=== PATIENT | female | born 1945 | race Caucasian/White ===

== ENCOUNTER 2018-07-30 16:42 | Emergency (ER) | payer MEDICARE, OTHER ==
[~2018-07-30] VITALS: Ht 160 cm; Wt 86.2 kg
[~2018-07-30 16:42] MED LIST: ALPR0.255; ASPI-605 PO; ATORVASTATIN TAB 40MG; BUTA-247; CALC-343 PO; CENTRUM CHEWAB1 EACH PO; ESTR1PAT7 TP; ESTR1PAT87; LEVO500T75 PO; LISI10TA5; MELA1TAB29 PO; METO10TA3; PROG100C15 PO; PROGESTERONE 100 MG
--- NOTE | 2018-07-30 16:48 | NUR ---
PT BIBRA FROM HOME TO ED BED 03 C/O L RIB AREA/FLANK PAIN S/P GLF AT HOME. PT PRESENTS W/ BILAT KNEE, L FOOT ABRASIONS. DENIES KO. GOWNED AND PLACED ON MONITOR. AWAITING MD JUAREZ.
[2018-07-30] MEDS ORDERED: ACETAMINOPHEN ES 500 MG TABLET PO ONE (17:00)
[2018-07-30] MEDS ORDERED: ONDANSETRON HCL/PF 4 MG/2 ML VIAL IVP ONE (17:00)
[2018-07-30] MEDS ORDERED: IV NS 0.9% 500 ML BAG IV ONE (17:00)
[2018-07-30] MEDS ORDERED: TDAP [DIPH/PERTUSSIS/TET] 0.5 ML VIAL IM ONE ×2 (17:00→17:09)
--- NOTE | 2018-07-30 17:00 | NUR ---
DR RENTERIA AT BEDSIDE FOR EVAL.
[2018-07-30] MEDS ORDERED: ONDANSETRON HCL/PF 4 MG/2 ML VIAL ONE (17:08)
[2018-07-30] MEDS ORDERED: ACETAMINOPHEN ES 500 MG TABLET ONE (17:09)
[2018-07-30] MEDS ORDERED: ESTR1PAT25 TD (17:12)
[2018-07-30] MEDS ORDERED: MULT-594 PO (17:12)
[2018-07-30] MEDS ORDERED: CHOL200059 PO (17:12)
[2018-07-30] MEDS ORDERED: LISI10TA5 PO (17:12)
[2018-07-30] MEDS ORDERED: CALC-864 PO (17:12)
[2018-07-30] MEDS ORDERED: ATOR40TA PO (17:12)
[2018-07-30] MEDS ORDERED: CALC-7 PO (17:26)
[2018-07-30] MEDS ORDERED: MULT-1160 PO (17:26)
[2018-07-30 17:37] LABS: BASOPHILS # (AUTO) 0.1 /CMM (0.0-0.2); BASOPHILS % (AUTO) 0.7 % (0.0-2.0); EOSINOPHILS % (AUTO) 0.5 % (0.0-6.0); HEMATOCRIT 40 % (33-45); HEMOGLOBIN 13.6 g/dL (11.5-14.8); LYMPHOCYTES # (AUTO) 1.3 /CMM (0.8-4.8); LYMPHOCYTES % (AUTO) 10.5 % (20.0-44.0); MEAN CORPUSCULAR HGB CONC 34 g/dl (31.0-36.0); MEAN CORPUSCULAR VOLUME 89 fL (82-100); MONOCYTES # (AUTO) 0.7 /CMM (0.1-1.30); MONOCYTES % (AUTO) 5.2 % (2.0-12.0); NEUTROPHILS # (AUTO) 10.5 /CMM (1.8-8.9); NEUTROPHILS % (AUTO) 83.1 % (43.0-81.0); PLATELET COUNT (AUTO) 232 /CMM (150-450); RED BLOOD CELL COUNT(AUTO) 4.51 MIL/uL (4.0-5.2); WHITE BLOOD COUNT (AUTO) 12.6 K/uL (4.3-11.0)
[2018-07-30 17:46] LABS: CALCIUM, SERUM 9.7 mg/dL (8.5-10.1); CARBON DIOXIDE 29 mmol/L (21-32); CHLORIDE 100 mmol/L (98-107); GLUCOSE 141 mg/dL (74-106); POTASSIUM 3.6 mmol/L (3.5-5.1); SODIUM SERUM 139 mmol/L (136-145); UREA NITROGEN, BLOOD 14 mg/dL (7-18)
--- NOTE | 2018-07-30 18:57 | NUR ---
DR RENTERIA BACK AT BEDSIDE TALKING TO PT'S FAMILY.
[2018-07-30] MEDS ORDERED: ONDANSETRON HCL/PF 4 MG/2 ML VIAL IV ONE (19:00)
[2018-07-30] MEDS ORDERED: METOCLOPRAMIDE HCL 10 MG/2 ML VIAL IV ONE (19:00)
[2018-07-30] MEDS ORDERED: ONDANSETRON 4 MG TAB.RAPDIS ONE (19:04)
--- NOTE | 2018-07-30 19:05 | NUR ---
REPORT GIVEN TO NITISH HENLEY FOR NOAM.
--- NOTE | 2018-07-30 19:09 | NUR ---
INFORMED THAT PT DOES NOT HAVE AN IV LINE ANYMORE. VERBAL ORDER RECEIVED OT GIVE ZOFRAN 4MG PO. INSTEAD OF IV.
--- NOTE | 2018-07-30 19:10 | NUR ---
REPORT RECEIVED FROM KALE BARRON FOR NOAM. PT IS IN BED. AWAKE AND ALERT.
[2018-07-30] MEDS ORDERED: METOCLOPRAMIDE HCL 10 MG TABLET ONE (19:33)
[2018-07-30] MEDS ORDERED: METOCLOPRAMIDE HCL 10 MG TABLET PO ONE (20:00)
[2018-07-30] MEDS ORDERED: ONDANSETRON HCL 4 MG/5 ML SOLUTION PO ONE (20:00)
[2018-07-30 21:21] VITALS: BP 133/81
== END 2018-07-30 21:23 | disposition home or self-care (01) ==
LOC: ER 16:47
DX: S00.81XA Abrasion of other part of head, initial encounter (principal); S80.212A Abrasion, left knee, initial encounter; S80.211A Abrasion, right knee, initial encounter; R11.10 Vomiting, unspecified; I10 Essential (primary) hypertension; E78.00 Pure hypercholesterolemia, unspecified; R51 Headache; Z98.890 Other specified postprocedural states; Z79.82 Long term (current) use of aspirin; W01.198A Fall on same level from slipping, tripping and stumbling with subsequent striking against other object, initial encounter; Y93.89 Activity, other specified; Y92.89 Other specified places as the place of occurrence of the external cause; Y99.8 Other external cause status
CPT/HCPCS: 36415; 70450; 71250; 80048; 84484; 85025; 85730; 90471; 90715; 93005; 96374; 99284; A6402; J2405; J7040; J8597; Q0162

== ENCOUNTER 2023-12-18 11:13 | Emergency (ER) | payer MEDICARE, OTHER ==
[~2023-12-18] VITALS: Ht 170.2 cm; Wt 68.0 kg
[~2023-12-18 11:13] MED LIST changes: -ALPR0.255; -ASPI-605 PO; +ATOR40TA PO; -ATORVASTATIN TAB 40MG; -BUTA-247; -CALC-343 PO; +CALC-7 PO; -CENTRUM CHEWAB1 EACH PO; +CHOL200059 PO; +ESTR1PAT25 TD; -ESTR1PAT7 TP; -ESTR1PAT87; -LEVO500T75 PO; +LISI10TA29 PO; -LISI10TA5; -MELA1TAB29 PO; -METO10TA3; +MULT-1160 PO; -PROGESTERONE 100 MG
[2023-12-18] MEDS ORDERED: MORPHINE SULFATE INJ 4 MG/ML DISP.SYRIN ONE (13:16)
[2023-12-18] MEDS ORDERED: ONDANSETRON HCL/PF 4 MG/2 ML VIAL ONE ×2 (13:16→16:09)
[2023-12-18] MEDS: IV NS 0.9% 1,000 ML BAG IV ONE (13:35)
[2023-12-18] MEDS: ONDANSETRON HCL/PF 4 MG/2 ML VIAL IVP ONE (13:36)
[2023-12-18 13:37] LABS: BASOPHILS % (AUTO) 0.2 % (0.0-2.0); EOSINOPHILS # (AUTO) 0.1 K/uL (0.0-0.7); EOSINOPHILS % (AUTO) 0.4 % (0.0-6.0); HEMATOCRIT 46 % (33-45); HEMOGLOBIN 14.9 g/dL (11.5-14.8); LYMPHOCYTES # (AUTO) 1.9 K/uL (0.8-4.8); LYMPHOCYTES % (AUTO) 7.2 % (20.0-44.0); MEAN CORPUSCULAR HEMOGLOBIN 30 PG (26.0-33.0); MEAN CORPUSCULAR HGB CONC 33 g/dl (31.0-36.0); MEAN CORPUSCULAR VOLUME 91 fL (82-100); MONOCYTES # (AUTO) 1.1 K/uL (0.1-1.30); MONOCYTES % (AUTO) 4.1 % (2.0-12.0); NEUTROPHILS # (AUTO) 22.9 K/uL (1.8-8.9); NEUTROPHILS % (AUTO) 88.1 % (43.0-81.0); PLATELET COUNT (AUTO) 291 K/uL (150-450); RED BLOOD CELL COUNT(AUTO) 5.06 MIL/uL (4.0-5.2)
[2023-12-18] MEDS: MORPHINE SULFATE INJ 2 MG/ML DISP.SYRIN IV ONE (13:41)
[2023-12-18 13:45] LABS: CALCIUM, SERUM 9.5 mg/dL (8.5-10.1); CARBON DIOXIDE 28 mmol/L (21-32); CHLORIDE 98 mmol/L (98-107); CREATININE 1.1 mg/dL (0.6-1.3); GLUCOSE 161 mg/dL (74-106); POTASSIUM 3.8 mmol/L (3.5-5.1); SODIUM SERUM 133 mmol/L (136-145); UREA NITROGEN, BLOOD 26 mg/dL (7-18)
[2023-12-18 13:51] LABS: ALANINE AMINOTRANSFERASE 19 U/L (12-78); ALBUMIN 3.7 g/dL (3.4-5.0); ALKALINE PHOSPHATASE 86 U/L (46-116); ASPARTATE AMINOTRANSFERASE 10 U/L (15-37); BILIRUBIN,DIRECT 0.2 mg/dL (0.0-0.2); BILIRUBIN,TOTAL 0.7 mg/dL (0.2-1.0); LIPASE 105 U/L (16-77); TOTAL PROTEIN, SERUM 7.7 g/dL (6.4-8.2)
[2023-12-18 13:53] LABS: LACTIC ACID 1.4 mmol/L (0.4-2.0)
[2023-12-18] MEDS ORDERED: IOHEXOL-300 100 ML VIAL IV ONE (14:41)
[2023-12-18 15:38] LABS: APPEARANCE,URINE Clear (CLEAR); BILIRUBIN,URINE Negative (NEGATIVE); BLOOD, URINE Negative Ery/uL (NEGATIVE); COLOR,URINE YELLOW (YELLOW); KETONES,URINE 15 mg/dL (NEGATIVE); LEUKOCYTE ESTERASE ,URINE Trace (NEGATIVE); NITRITE, URINE Negative (NEGATIVE); PH,URINE 6.5 (5.0-8.0); PROTEIN,URINE Negative (NEGATIVE); UGLUCOSE Negative (NEGATIVE); UROBILINOGEN,URINE 0.2 EU/dL (0.2)
[2023-12-18 16:01] LABS: ADD URINE CULTURE NO; BACTERIA,URINE Few /HPF (None Seen); RBC,URINE 0-2 /HPF (0-2); SQUAMOUS EPITHELIAL CELL,UR Few /HPF (None Seen); WBC,URINE 0-2 /HPF (0-3)
[2023-12-18] MEDS ORDERED: ACETAMINOPHEN 325 MG TABLET ONE (16:09)
[2023-12-18] MEDS: IV NS 0.9% 500 ML BAG IV ONE (16:20)
[2023-12-18] MEDS: ONDANSETRON HCL/PF - ER 4 MG/2 ML VIAL IV ONE (16:22)
[2023-12-18] MEDS: ACETAMINOPHEN 325 MG TABLET PO ONE (16:37)
[2023-12-18 19:19] VITALS: BP 156/72; TEMP 99.1; O2SAT 97
== END 2023-12-18 18:45 | disposition home or self-care (01) ==
LOC: ER 11:15
DX: R11.2 Nausea with vomiting, unspecified (principal); R10.84 Generalized abdominal pain; I10 Essential (primary) hypertension; Z98.890 Other specified postprocedural states
CPT/HCPCS: 99285; 74177; 96374; 71045; 96361; 93005; 96376; 85025; 80048; 87040; 83605; 83690; 80076; 81001; 36415; 84484; J2405 ×2; J7030; J7040; Q9967; J2270

== ENCOUNTER 2024-08-31 10:45 | Emergency (ER) | payer MEDICARE, OTHER ==
[~2024-08-31] VITALS: Ht 157.5 cm; Wt 55.3 kg
[2024-08-31] MEDS ORDERED: TDAP [DIPH/PERTUSSIS/TET] 0.5 ML VIAL IM ONE (11:40)
[2024-08-31] MEDS: BACI/NEOM/POLY B OINT PKT 1 UDPKT PACKET TP ONE (11:41)
[2024-08-31] MEDS ORDERED: BACI/NEOM/POLY B OINT PKT 1 UDPKT PACKET ONE (11:41)
[2024-08-31] MEDS: TDAP [DIPH/PERTUSSIS/TET] 0.5 ML VIAL IM ONE (12:10)
[2024-08-31] MEDS ORDERED: ACET-2605 PO (13:31)
[2024-08-31 14:10] VITALS: BP 132/80; TEMP 98.2; O2SAT 98
== END 2024-08-31 14:11 | disposition home or self-care (01) ==
LOC: ER 10:52
DX: S01.81XA Laceration without foreign body of other part of head, initial encounter (principal); S16.1XXA Strain of muscle, fascia and tendon at neck level, initial encounter; S80.01XA Contusion of right knee, initial encounter; S50.312A Abrasion of left elbow, initial encounter; S80.211A Abrasion, right knee, initial encounter; E78.5 Hyperlipidemia, unspecified; I10 Essential (primary) hypertension; I25.10 Atherosclerotic heart disease of native coronary artery without angina pectoris; I25.2 Old myocardial infarction; Z79.890 Hormone replacement therapy; Z79.899 Other long term (current) drug therapy; W01.0XXA Fall on same level from slipping, tripping and stumbling without subsequent striking against object, initial encounter; Y93.89 Activity, other specified; Y92.89 Other specified places as the place of occurrence of the external cause; Y99.8 Other external cause status
CPT/HCPCS: 70450-TC; 70486-TC; 71045-TC; 72125-TC; 72170-TC; 73564-TC; 90715